=== PATIENT | female | born 1955 | race African-American/Black ===

== ENCOUNTER 2017-09-12 10:16 | Emergency (ER) | payer MEDICAID, MEDICARE ==
[~2017-09-12] VITALS: Ht 172.7 cm; Wt 80.0 kg
[~2017-09-12 10:16] MED LIST: AMLO2.5T45 PO; LISI-604 PO
[2017-09-12] MEDS ORDERED: HYDROCODONE/ACETAMINOPHEN 5/325MG TABLET PO ONE (10:45)
[2017-09-12] MEDS ORDERED: TETANUS, DIPHTHERIA, PERTUSSIS VAC/PF 0.5ML (>7YR OLD) IM ONE (10:45)
[2017-09-12] MEDS ORDERED: AMOXICILLIN/POTASSIUM CLAVULANATE 875/125MG TAB PO ONE (10:45)
[2017-09-12 12:21] VITALS: BP 108/54
== END 2017-09-12 12:27 | disposition home or self-care (01) ==
LOC: ER 10:16
DX: S09.90XA Unspecified injury of head, initial encounter (principal); S40.812A Abrasion of left upper arm, initial encounter; S60.512A Abrasion of left hand, initial encounter; Y04.2XXA Assault by strike against or bumped into by another person, initial encounter; Y04.1XXA Assault by human bite, initial encounter; Y93.89 Activity, other specified; Y92.012 Bathroom of single-family (private) house as the place of occurrence of the external cause; I10 Essential (primary) hypertension; E78.00 Pure hypercholesterolemia, unspecified; Z23 Encounter for immunization
CPT/HCPCS: 90471; 90715; 99283

== ENCOUNTER 2018-08-24 12:16 | Emergency (ER) | payer SELFPAY ==
[~2018-08-24] VITALS: Ht 167.6 cm; Wt 72.7 kg
[2018-08-24] MEDS ORDERED: TRAM150C25 PO (13:08)
[2018-08-24] MEDS ORDERED: KETOROLAC 60MG/2ML VIAL IM STA (14:43)
[2018-08-24 16:34] VITALS: BP 150/97
== END 2018-08-24 16:35 | disposition home or self-care (01) ==
LOC: ER 12:16
DX: S30.0XXA Contusion of lower back and pelvis, initial encounter (principal); M54.5 Low back pain; I10 Essential (primary) hypertension; W08.XXXA Fall from other furniture, initial encounter; Y93.89 Activity, other specified; Y92.512 Supermarket, store or market as the place of occurrence of the external cause; Z98.890 Other specified postprocedural states
CPT/HCPCS: 72100; 96372; 99283; J1885

== ENCOUNTER 2018-10-30 11:21 | Emergency (ER) | payer MEDICARE ==
[~2018-10-30] VITALS: Ht 162.6 cm; Wt 60.0 kg
[~2018-10-30 11:21] MED LIST changes: +TRAM150C25 PO
[2018-10-30 12:30] VITALS: BP 128/72
== END 2018-10-30 12:30 | disposition home or self-care (01) ==
LOC: ER 11:21
DX: M54.2 Cervicalgia (principal); M54.5 Low back pain; R51 Headache; I10 Essential (primary) hypertension; M19.90 Unspecified osteoarthritis, unspecified site; F32.9 Major depressive disorder, single episode, unspecified; V49.59XA Passenger injured in collision with other motor vehicles in traffic accident, initial encounter; Y93.89 Activity, other specified; Y92.488 Other paved roadways as the place of occurrence of the external cause
CPT/HCPCS: 99283

== ENCOUNTER 2019-05-09 12:36 | Emergency (ER) | payer MEDICARE, MEDICAID ==
[~2019-05-09] VITALS: Ht 167.6 cm; Wt 66.0 kg
[2019-05-09] MEDS: ACETAMINOPHEN 500MG TABLET PO ONE ×2 (18:00→18:51)
[2019-05-09] MEDS ORDERED: ONDANSETRON 4MG ODT PO ONE (18:00)
[2019-05-09] MEDS ORDERED: IBUPROFEN 800MG TABLET PO ONE (18:00)
[2019-05-09] MEDS ORDERED: HYDROCODONE/ACETAMINOPHEN 5/325MG TABLET PO ONE (19:15)
[2019-05-09 19:21] LABS: CLARITY URINE CLOUDY (CLEAR); COLOR URINE YELLOW (YELLOW); KETONES URINE 1+ (NEGATIVE); LEUKOCYTE ESTERASE URINE 1+ (NEGATIVE); NITRITE URINE NEGATIVE (NEGATIVE); OCCULT BLOOD URINE 3+ (NEGATIVE); PH URINE 5.5 (4.5-8.0); PROTEIN URINE 1+ (NEGATIVE); SPECIFIC GRAVITY URINE 1.022 (1.005-1.030); UROBILINOGEN URINE 0.2 E.U./dL (0.2-1.0)
[2019-05-09 20:36] VITALS: BP 138/65
== END 2019-05-09 20:30 | disposition home or self-care (01) ==
LOC: ER 12:36
DX: M47.897 Other spondylosis, lumbosacral region (principal); M54.5 Low back pain; N39.0 Urinary tract infection, site not specified; I10 Essential (primary) hypertension
CPT/HCPCS: 72100; 81003; 81025; 99284; Q0162